=== PATIENT | male | born 1995 | race Caucasian/White ===

== ENCOUNTER 2016-12-14 19:16 | Emergency (ER) ==
[2016-12-14] MEDS ORDERED: ATIVAN IM ONE (19:34)
--- NOTE | 2016-12-14 19:39 | PROVIDER DOCUMENTATION ---
HPI-General Adult - General Chief Complaint: General Adult Stated Complaint: GENERAL Time Seen by Provider: 12/14/16 19:33 Source: patient Allergies/Adverse Reactions: Patient Allergies Allergy/AdvReac Type Severity Reaction Status Date / Time acetaminophen AdvReac ITCHING Verified 05/22/16 20:20 [From Tylenol-Codeine #3] codeine phosphate * AdvReac ITCHING Verified 05/22/16 20:20 [From Tylenol-Codeine #3] Home Medications: Home Medication List Medication Instructions Recorded Confirmed Last Taken Type Cyclobenzaprine [Flexeril] 10 mg PO TID #20 tablet 05/16/16 05/22/16 Unknown Rx Naproxen 500 mg PO BID PRN #30 tablet 05/16/16 05/22/16 Unknown Rx Ibuprofen 800 mg PO BID #20 tablet 05/22/16 Unknown Rx Diazepam [Valium] 5 mg PO TID #12 tablet 10/11/16 Unknown Rx Methocarbamol 500 mg PO 3-4XDAY PRN PRN #20 10/11/16 Unknown Rx tablet Tramadol [Ultram] 50 mg PO Q8HR #10 tablet 10/18/16 Unknown Rx Ibuprofen [Motrin] 800 mg PO Q8H PRN PRN #20 tablet 12/14/16 Unknown Rx Omeprazole 20 mg PO DAILY #20 tablet. 12/14/16 Unknown Rx - History of Present Illness -Gen Adult Nature of Presenting Problems: Pt. is 21 yom that presents with c/o right shoulder pain and numbness to his hands. Pt. reports a hx of anxiety. Pt. denies any injury and states he bent over to pick something up and then his shoulder began to feel strange. Pt. denies any other complaints. Location of Pain/Injury: reports: upper extremity (Right shoulder). denies: head, face, mouth, neck, chest, hand(s), abdomen, back, pelvis, genitalia, lower extremity, feet, upper body, lower body, generalized Pain Radiation: reports: no radiation Quality of Pain: reports: aching. denies: burning, cramping, dull, fullness, indigestion, pressure, sharp, stabbing, tearing, throbbing, tightness Severity: reports: mild. denies: moderate, severe Onset/Duration: reports: abrupt, this afternoon Timing: reports: still present. denies: improving, gone now, resolved prior to arrival, intermittent, constant, changing over time, getting worse Context/Activities at Onset: reports: light activity. denies: recent emotional stress, recent physical stress, recent trauma history, possible bad food, cold exposure, out of country travel Modifying Factors: improves with: nothing Associated Symptoms: reports: joint pain (Right shoulder). denies: anxiety, arm pain, back/neck pain, chest pain, constipation, cough, diaphoresis, diarrhea , dizziness, EENT symptoms, fatigue, fever/chills, genitourinary problems, headaches, heartburn, loss of appetite, malaise, muscle aches, sinus congestion/ drainage, nausea, rash, seizure, shortness of breath, sensory/motor loss, pain with inspiration, swelling/mass in abdomen, syncope, vomiting, weakness, trouble walking Similar Symptoms Previously?: No Recently seen or treated by another doctor?: No Review of Systems - Adult - REVIEW OF SYSTEMS - ADULT Constitutional: reports: see HPI. denies: chills, fever, fatique Eyes: reports: see HPI. denies: discharge, blurred vision, double vision, eye pain Ears, Nose, Mouth & Throat: reports: see HPI. denies: ear pain, hearing loss, nose pain, loose teeth, mouth/dental pain, throat pain, throat swelling Cardiovascular: reports: see HPI. denies: chest pain, irregular heart rate, orthopnea, syncope Respiratory: reports: see HPI. denies: cough, dyspnea on exertion, pleurisy, shortness of breath, wheezing Gastrointestinal: reports: see HPI. denies: abdominal pain, hematemesis, diarrhea, nausea, vomiting Genitourinary: reports: see HPI. denies: dysuria, discharge, flank pain, hesitency, urgency Musculoskeletal: reports: see HPI, joint pain (Right shoulder). denies: bone pain, back pain, muscle aches, neck pain Integumentary: reports: see HPI. denies: hives, hair loss, itching, rash, skin thickening Neurological: reports: see HPI. denies: ataxia, headache/migraines, numbness, seizure, tremors Psychiatric: reports: see HPI, anxiety. denies: depression, emotional problems , insomnia, panic attacks, suicidal thoughts Past History - Adult - PAST MEDICAL HISTORY-ADULT Review of Records: reports: Old Records Reviewed, Nursing Assessment Review, Medications Reviewed, Social history reviewed & non-contributory. Major Childhood Illnesses: reports: denies history Cardiovascular: reports: denies history Respiratory: reports: denies history Gastrointestinal: reports: denies history Genitourinary: reports: denies history Musculoskeletal: reports: other (scoliosis surgery with rods in back many years ago) Neurological: reports: denies history Psychiatric: reports: anxiety Endocrine/Immune: reports: denies history Other Conditions: reports: denies history - PRIOR SURGERIES/PROCEDURES Surgical/Procedure History: reports: orthopedic (extremity), back/neck - PRIOR HOSPITALIZATIONS Prior Hospitalizations: reports: none - IMMUNIZATION STATUS Childhood Immunizations: UTD Flu Vaccine: See Nurse Assessment - FAMILY HISTORY Family History: reviewed, not pertinent - SOCIAL HISTORY Smoking: cigarettes, less than 1 pack/day Provider spent 3-5 mins advising pt. on dangers of tobacco.: Discussed the need to stop smoking. Physical Exam-General - PHYSICAL EXAM-ADULT Initial Vital Signs Reviewed: Yes - CONSTITUTIONAL General Appearance: alert, mild distress, thin, anxious. negative: obese, lethargic, slow to respond, obtunded, combative - EYES Eyes: PERRL/EOMI, pink conjunctivae. negative: conjuctival exudate, scleral icterus, subconjunctival hemorrhage - HEAD, EARS, NOSE, MOUTH & THROAT HENMT: normocephalic/atraumatic, moist mucous membranes. negative: angioedema, frontal tenderness, maxillary tenderness - NECK Neck: non-tender, full range of motion, supple, normal inspection. negative: lymphadenopathy, trachial deviation, thyromegaly - RESPIRATORY Respiratory: lungs clear, normal breath sounds. negative: crackles, rales, rhonchi, stridor, wheezing - CARDIOVASCULAR Cardiovascular: regular rate, rhythm, no edema, no JVD, no murmur, tachycardia. negative: extra beats, friction rub, irregularly irregular - CHEST (BREASTS) Chest/Breast: deferred - GASTROINTESTINAL (ABDOMEN) Abdominal Exam: normal bowel sounds, non tender, soft. negative: distended, guarding, rigid, rebound, tenderness, hernia, mass - GENITOURINARY Male Genitalia: deferred Rectal Exam: deferred Hemoccult Exam: deferred - LYMPHATIC Lymphatic: no adenopathy. negative: axilla node tender, cervical node tenderness - MUSCULOSKELETAL Back Exam: normal inspection, no CVA tenderness, no vertebral tenderness. negative: ecchymosis, swelling, vertebral tenderness Extremity: deformity (The right scapula is more pronounced. It is unclear if this is normal due to previous scoliosis surger, but the patient denies that this is normal.), tenderness. negative: erythema, inflammation, swelling Peripheral Pulses: radial (R): 2+, radial (L): 2+ - SKIN Integumentary: normal color, normal turgor, warm/dry. negative: cyanosis, diaphoresis, ecchymosis, erythema, jaundice, mottled, pallor, petechiae, purpura , rash, swelling, tenderness - NEUROLOGIC Neurologic: grossly normal, no motor/sensory deficits. negative: aphasia, facial droop, focal weakness, motor weakness, sensory deficit - PSYCHIATRIC Psych/Mental Status: normal mood/affect, normal thought content, normal thought process, oriented x 3, anxious. negative: paranoid, tearful Progress - PLAN OF CARE/RESULTS Progress/Plan/Lab Results: Discussed results and plan of care with patient. Patient agrees with plan and verbalizes understanding. Vital Signs Temp Pulse Resp BP Pulse Ox 12/14/16 19:18 97.6 F 122 H 20 139/91 100 acetaminophen [From Tylenol-Codeine #3] Adverse Reaction (Verified 05/22/16 20: 20) ITCHING codeine phosphate * [From Tylenol-Codeine #3] Adverse Reaction (Verified 20:20) ITCHING Cyclobenzaprine [Flexeril] 10 mg PO TID #20 tablet 05/16/16 Naproxen 500 mg PO BID PRN #30 tablet 05/16/16 Ibuprofen 800 mg PO BID #20 tablet 05/22/16 Diazepam [Valium] 5 mg PO TID #12 tablet 10/11/16 Methocarbamol 500 mg PO 3-4XDAY PRN PRN #20 tablet 10/11/16 Tramadol [Ultram] 50 mg PO Q8HR #10 tablet 10/18/16 Orders Category Date Time Status SHOULDER-RIGHT [RAD] Stat Exams 12/14/16 19:22 Taken Lorazepam [Ativan] Med 12/14/16 19:34 Discontinued 1 mg IM NOW ONE - XRAY 1 XRAY: Right XRAY Study: Shoulder XRAY Interpretation: AC joint seperation ([place]) Departure - Departure Time of Disposition Order: 19:45 DIAGNOSIS: Anxiety Separation of AC joint Qualifiers: Encounter type: initial encounter Laterality: right Qualified Code(s): S43.101A - Unspecified dislocation of right acromioclavicular joint, initial encounter Disposition: HOME 01 Certified Medical Emergency: Emergent Condition: Stable Additional Instructions: Follow up with primary care physician Follow up with orthopedic physician Take medications as directed Return to ED for any concerns or worsening of symptoms ED Follow Up Instructions: You have been treated by a care provider in the Emergency Department. These instructions are being provided to you so you can have an understanding of how to care for yourself upon discharge. Upon discharge from the Emergency Department, you are responsible for making arrangements for follow-up care by a physician of your choice. Take all prescribed medications as directed. Return to the Emergency Department immediately for any new or worsening symptoms. You may call the Physician Referral phone number at [phone] to obtain a list of Physicians who are taking new patients. Prescriptions: Ibuprofen [Motrin] 800 mg PO Q8H PRN PRN #20 tablet PRN Reason: inflammation Omeprazole 20 mg PO DAILY #20 tablet.dr Referrals: None,PCP [Primary Care Provider] - Diana Jeffery MD [STAFF PHYSICIAN] - Attestation - Physician/ JORDEN Attestation Patient care was provided by Advanced Practice Provider:: Yes Advanced Practice Provider:: Melinda Clifton Advanced Practice Provider documentation review:: The Mid-level provider documentation, treatment plan and medical decision making was reviewed by the physician who agrees with all treatment and medical decision making by the P.
[2016-12-14 20:34] VITALS: BP 130/90
--- NOTE | 2016-12-14 21:56 | Diag Imaging Result Document ---
PROCEDURE NAME: SHOULDER-RIGHT - 12/14/2016 STUDY: Plain radiograph of the right shoulder, 3 views. COMPARISON: None available. FINDINGS: There is no discrete fracture, dislocation, or intrinsic osseous lesion. The visualized joint spaces are essentially unremarkable. The surrounding soft tissues are grossly unremarkable. IMPRESSION: No evidence of acute osseous abnormality.
== END 2016-12-14 20:33 | disposition home or self-care (01) ==
LOC: ED 19:16
DX: S43.101A Unspecified dislocation of right acromioclavicular joint, initial encounter (principal); F41.9 Anxiety disorder, unspecified; M25.511 Pain in right shoulder; R20.0 Anesthesia of skin; R00.0 Tachycardia, unspecified; M95.8 Other specified acquired deformities of musculoskeletal system; F17.210 Nicotine dependence, cigarettes, uncomplicated; Z71.6 Tobacco abuse counseling
CPT/HCPCS: J2060